=== PATIENT | male | born 1970 | race Caucasian/White ===

== ENCOUNTER 2018-11-05 08:04 | Day surgery (SDC) | payer BC ==
[2018-11-05] MEDS ORDERED: Midazolam 1 MG/ML 2 ML SDV ONE ×2 (08:16→10:32)
[2018-11-05] MEDS ORDERED: fentaNYL 100 MCG/2 ML SDV ONE ×2 (08:16→10:32)
[2018-11-05] MEDS ORDERED: Propofol 200 MG/20 ML SDV ONE ×2 (08:16→10:32)
[2018-11-05] MEDS ORDERED: Dextrose 5%-Lactated Ringers 1,000 ML IV SCH (08:45)
--- NOTE | 2018-11-07 12:41 | OR ---
DATE OF PROCEDURE: 11/05/2018 PREOPERATIVE DIAGNOSIS: Indications for screening colonoscopy. POSTOPERATIVE DIAGNOSIS: Normal screening colonoscopy. OPERATIVE PROCEDURE: Flexible colonoscopy. ANESTHESIA: IV sedation. INDICATIONS FOR PROCEDURE: A 48-year-old presenting with plans for screening colonoscopy. He has had no previous colonoscopies and he is undergoing screening colonoscopy this time. He has likewise no family history of colonic neoplasia. Potential risks of the procedure including bleeding and perforation were discussed, and the patient wishes to proceed. DETAILS OF PROCEDURE: The patient was taken to the operating room and placed in a left lateral decubitus position. IV sedation was administered, after which the initial digital rectal exam was performed. This was unremarkable. Colonoscope was then passed into the rectum with retroflexion revealing uncomplicated hemorrhoidal columns. The scope was then eventually passed to the level of the cecum. Prep was quite good. Only a small amount of liquid stool was present. To that level, no abnormalities were noted. Specifically, there were no diverticula. No areas of colitis, and no polyps or other signs of neoplasia. The scope was then withdrawn. The above findings were reconfirmed, and the procedure was concluded. The patient was taken to the recovery room in satisfactory condition. Recommendations would be to repeat the colonoscopy in 10 years. Getachew Lees MD /[id number]
== END 2018-11-05 12:00 | disposition home or self-care (01) ==
LOC: JP.SDS 08:04
PROVIDERS: ATTEND Surgery
DX: Z12.11 Encounter for screening for malignant neoplasm of colon (principal); K64.9 Unspecified hemorrhoids; I10 Essential (primary) hypertension; E11.9 Type 2 diabetes mellitus without complications; E78.00 Pure hypercholesterolemia, unspecified
CPT/HCPCS: 45378; J2250; J2704; J3010; J7042

== ENCOUNTER 2020-05-10 19:33 | Emergency (ER) | payer OTHER, BC ==
[2020-05-10] MEDS ORDERED: Iopamidol 612 MG/ML 100 ML Bottle IV PRN (19:47)
[2020-05-10] MEDS ORDERED: Sodium Chloride 0.9% 100 ML IV SCH (20:00)
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
[2020-05-10] MEDS ORDERED: Ketorolac 30 MG/ML SDV IVPUSH ONE (20:58)
[2020-05-10] MEDS ORDERED: Diphtheria,Pertussis(Acell),Tetanus Vaccine 0.5 ML Syringe IM ONE (20:58)
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
== END 2020-05-10 22:29 | disposition home or self-care (01) ==
LOC: JP.ED 19:33
DX: S01.511A Laceration without foreign body of lip, initial encounter (principal); S39.012A Strain of muscle, fascia and tendon of lower back, initial encounter; S40.021A Contusion of right upper arm, initial encounter; S60.512A Abrasion of left hand, initial encounter; S60.511A Abrasion of right hand, initial encounter; F10.120 Alcohol abuse with intoxication, uncomplicated; Y90.8 Blood alcohol level of 240 mg/100 ml or more; I10 Essential (primary) hypertension; E78.00 Pure hypercholesterolemia, unspecified; E11.9 Type 2 diabetes mellitus without complications; Z23 Encounter for immunization; Z79.899 Other long term (current) drug therapy; W22.8XXA Striking against or struck by other objects, initial encounter
CPT/HCPCS: 12013; 36415; 70450; 71260; 72125; 74177; 80053; 80305; 80307; 85025; 90471; 90715; 96374; 99285; J1885; J2001; Q9967